=== PATIENT | male | born 1970 | race Caucasian/White ===

== ENCOUNTER 2020-08-12 12:28 | Emergency (ER) | payer OTHER, SELFPAY ==
[2020-08-12 13:30] VITALS: BP 168/105; PULSE 88; RESP 16; TEMP 36.9; O2SAT 97; BMI 24.5
--- NOTE | 2020-08-12 13:31 | ED.BACK ---
HPI - Back Pain/Injury General Chief Complaint: Back Pain/Injury <VICKEY Ugalde Last Filed: 08/12/20 13:40> Stated Complaint: BACK PAIN - WORK RELATED <VICKEY Ugalde Last Filed: 08/12/20 13:40> Time Seen by Provider: 08/12/20 13:18 <VICKEY Ugalde Last Filed: 08/12/20 13:40> Source: patient <VICKEY Ugalde Last Filed: 08/12/20 13:40> Mode of arrival: ambulatory <VICKEY Ugalde Last Filed: 08/12/20 13:40> Limitations: no limitations <VICKEY Ugalde Last Filed: 08/12/20 13:40> History of Present Illness HPI Narrative: 50yoM c PMHx of chronic back pain presenting to the ED c c/o having a injury at work On Tuesday his boss told him to move a dryer and his legs gave out while moving the dryer and he fell holding the dryer and the dryer fell onto of him and since has been having pain to right side back/buttocks pain worse today. Denies head injury no loc. <VICKEY Ugalde Last Filed: 08/12/20 13:40> Related Data Home Medications: Previous Rx's Medication Instructions Recorded oxycodone 5 mg PO Q8H PRN #14 tab 08/12/20 <VICKEY Ugalde Last Filed: 08/12/20 13:40> Allergies/Adverse Reactions: Allergies Allergy/AdvReac Type Severity Reaction Status Date / Time naproxen [From NAPROSYN] Allergy Intermediate ABD PAIN Unverified 04/10/20 19:24 AND ACID REFLUX acetaminophen [From TYLENOL] Allergy Mild REFLUX Unverified 04/10/20 19:24 ibuprofen [IBUPROFEN] Allergy Mild REFLUX Unverified 04/10/20 19:24 <VICKEY Ugalde Last Filed: 08/12/20 13:40> Review of Systems Review of Systems: Constitutional : No trauma, No Weight loss, No Fever, No Chills, ENT/Mouth : No Hearing loss, No Ear Pain, No Nasal Congestion, No Sinus Pain, No Hoarseness, No sore throat, No Rhinorrhea, No Swallowing Difficulty Cardiovascular : No Chest Pain, No SOB Respiratory : No Cough, No Dyspnea Gastrointestinal : No Nausea, No Vomiting, No Diarrhea, No abdominal Pain, No Hematochezia, No Melena Genitourinary : No Dysuria, No Urinary Frequency, No Hematuria, No Urinary or Bowel Incontinence/retention Musculoskeletal : + Back pain, No neck pain, No joint stiffness, No joint swelling Skin : No Skin Lesions, No rash or signs of infection Neuro : No Weakness, No radiation, No Numbness, No Paresthesias, No headache, no loss of bowel or bladder incontinence, no saddle anesthesia Denies history of IV drug usage. <VICKEY Ugalde - Last Filed: 08/12/20 13:40> Yes all other systems are reviewed and are negative <VICKEY Ugalde - Last Filed: 08/12/20 13:40> FOR[facility]LY [facility] Past Medical History Attestation statement: The following information was validated with the patient. <VICKEY Ugalde - Last Filed: 08/12/20 13:40> Social History Social History: Social History Advance Directives: No Advance Directives Information Provided: No <VICKEY Ugalde - Last Filed: 08/12/20 13:40> Physical Exam Vital Signs: Vital Signs: Last Vital Signs Temp 98.4 F 08/12/20 13:30 Pulse 88 08/12/20 13:30 Resp 16 08/12/20 13:30 BP 168/105 H 08/12/20 13:30 Pulse Ox 97 08/12/20 13:30 Body Mass Index 24.5 vital signs have been reviewed as normal and appeared to be correct. Blood pressure normal. Heart rate normal. Respiration rate normal. Temperature normal. Oxygen saturation normal. <VICKEY Ugalde - Last Filed: 08/12/20 13:40> Vital Signs: Last Vital Signs Temp 98.4 F 08/12/20 13:30 Pulse 88 08/12/20 13:30 Resp 16 08/12/20 13:30 BP 168/105 H 08/12/20 13:30 Pulse Ox 97 08/12/20 13:30 Body Mass Index 24.5 <Tre Franco MD - Last Filed: 08/20/20 07:12> Appearance: Alert. Oriented X3. No acute distress. Head: Normal external exam. Normocephalic. Atraumatic. No Jim signs noted. No raccoon eyes noted Eyes: PERRLA. EOMI. Conjunctiva and sclera normal. Eyelids normal. ENT: EAC normal. TM's Normal. Pharynx normal. Uvula midline. Moist mucous membranes. No trismus noted. No drooling noted. No muffled voice noted. Neck: Normal inspection. Neck supple. FROM. No adenopathy. Thyroid Normal. No meningeal signs. No neck mass noted. CVS: Normal heart rate and rhythm. Heart sound normal. No murmurs noted. Pulses normal throughout. Respiratory: No respiratory distress. Painless inspiration. Breath sounds normal. No wheezes/rales/rhonchi noted. Chest nontender. No accessory muscle usage noted or decreased air movement noted. Abdomen: Soft and nontender. Bowel sounds normal in all 4 quadrants. No distention noted. No organomegaly noted. No visible injury noted. Back: No CVA tenderness. Full range of motion noted. No obvious deformities, or edema. Mild para-spinal muscular tenderness from lumbar region to coccyx. Full ROM in back and lower extremities. 5/5 strength hip extension/flexion, abduction, adduction. Mild Lumbar pain with hip flexion against resistance. Straight leg raise test negative on right; Straight leg raise test negative on left; Reflexes normal ankle and knee bilaterally; EHL motor strength normal bilaterally Skin: Skin warm and dry. Normal skin color. Normal skin turgor. No rashes/lesions/lacerations noted. Extremities: No lower extremity edema. Extremities exhibit normal range of motion. Extremities nontender. Neuro: Oriented X 3. No motor deficit. No sensory deficit. Reflexes normal. <VICKEY Ugalde - Last Filed: 08/12/20 13:40> Course Course Course Narrative: Pt c likely muscular pain, but could be herniated disc. Neuro exam shows no deficits. Not c/w AAA/epidural abscess/dissection.No high risk Hx (Incont, fever, immunosupp, recent surgery/LP, coag, signif trauma, wt loss, puls mass, hx/o Ca, TB, or IVDU) to warrant MRI/CT today. I offered XRay and pt refused. Not c/w Pyelo/UTI/kidney stone/spinal fx. Not cauda equina syndrome. DC c meds and f/u. <VICKEY Ugalde - Last Filed: 08/12/20 13:40> I have reviewed the chart <Tre Franco MD - Last Filed: 08/20/20 07:12> MDM - Back Pain/Injury Medical Records Attestation: I reviewed the patient's medical records. <VICKEY Ugalde - Last Filed: 08/12/20 13:40> Discharge Plan Discharge Clinical Impression: Acute lumbar radiculopathy, Fall, Work related injury, Back pain <VICKEY Ugalde - Last Filed: 08/12/20 13:40> Patient Disposition: Home, Self-Care <VICKEY Ugalde - Last Filed: 08/12/20 13:40> Instructions: Lower Back Exercises (ED) <VICKEY Ugalde - Last Filed: 08/12/20 13:40> Prescriptions: New oxycodone 5 mg tablet 5 mg PO Q8H PRN (Reason: pain) Qty: 14 RF: 0 <VICKEY Ugalde - Last Filed: 08/12/20 13:40> Referrals: ED Physician,Generic [Physician] - 2 days (your pcp) <VICKEY Ugalde - Last Filed: 08/12/20 13:40> Stand Alone Forms: Work/School Release <VICKEY Ugalde - Last Filed: 08/12/20 13:40> Interventions: ED Discharge Assessment Last Done: 08/12/20 14:38 <VICKEY Ugalde - Last Filed: 08/12/20 13:40> Discharge Date/Time: 08/12/20 14:39 <VICKEY Ugalde - Last Filed: 08/12/20 13:40> Print Language: Divehi <VICKEY Ugalde - Last Filed: 08/12/20 13:40>
== END 2020-08-12 14:39 | disposition home or self-care (01) ==
LOC: HO.ED 13:56
PROVIDERS: Emergency Provider Emergency Medicine
DX: Z04.2 Encounter for examination and observation following work accident (principal); M54.16 Radiculopathy, lumbar region; M54.5 Low back pain
CPT/HCPCS: 99283